=== PATIENT | male | born 1950 | race Caucasian/White ===

== ENCOUNTER 2016-12-17 11:47 | Observation (INO) | payer MEDICARE, OTHER ==
[2016-12-17] VITALS (8 sets, daily range): BP systolic 133–168; BP diastolic 70–95; PULSE 56–68; RESP 16–23; TEMP 97.7–97.8; O2SAT 97–100
[~2016-12-17] VITALS: Ht 180.3 cm; Wt 93.0 kg
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
[2016-12-17] MEDS ORDERED: SODIUM CHLORIDE 0.9% FLUSH 10 ML FLUSH IVF PRN (12:00)
[2016-12-17] MEDS ORDERED: LIDOCAINE HCL 1% 50 ML VIAL INFIL ONE ×2 (12:00→13:15)
[2016-12-17] MEDS ORDERED: TETANUS/DIPHTHERIA TOXOID ADULT 0.5 ML VIAL IM ONE (12:00)
[2016-12-17] MEDS ORDERED: LIDOCAINE HCL 1% PF 30 ML VIAL ONE ×2 (12:45→13:25)
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
[2016-12-17 12:59] LABS: APTT (PATIENT) 24.3 SEC (24.3-30.1)
[2016-12-17 13:02] LABS: BASOPHIL # 0.1 TH/MM3 (0-0.2); BASOPHIL % 0.7 % (0.0-2.0); EOSINOPHIL # 0.2 TH/MM3 (0-0.4); HEMATOCRIT 44.4 % (39.0-51.0); HEMO FLAGS DIFF FINAL; LYMPH % 19.6 % (9.0-44.0); LYMPHOCYTE # 1.7 TH/MM3 (1.0-4.8); MEAN CELL VOLUME 83.5 FL (80.0-100.0); MEAN CORPUSCULAR HEMOGLOBIN 28.2 PG (27.0-34.0); MEAN CORPUSCULAR HGB CONC 33.7 % (32.0-36.0); NEUT % 68.7 % (16.0-70.0); PLATELET COUNT 198 TH/MM3 (150-450); RED BLOOD COUNT 5.31 MIL/MM3 (4.50-5.90); RED CELL DISTRIBUTION WIDTH 13.2 % (11.6-17.2); WHITE BLOOD COUNT 8.7 TH/MM3 (4.0-11.0)
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
[2016-12-17 13:19] LABS: ALT (GPT) 25 U/L (12-78); ANION GAP 8 MEQ/L (5-15); AST (GOT) 18 U/L (15-37); BICARBONATE 23.2 MEQ/L (21.0-32.0); BLOOD UREA NITROGEN 17 MG/DL (7-18); CHLORIDE 107 MEQ/L (98-107); GLOMERULAR FILTRATION RATE 61 ML/MIN (>89); MAGNESIUM 2.3 MG/DL (1.5-2.5); POTASSIUM 4.8 MEQ/L (3.5-5.1); SODIUM (NA) 138 MEQ/L (136-145)
[2016-12-17 13:23] LABS: ALKALINE PHOSPHATASE 62 U/L (45-117); CREATINE KINASE 121 U/L (39-308); TOTAL BILIRUBIN ADULT 0.7 MG/DL (0.2-1.0)
[2016-12-17 13:35] LABS: CKMB 2.3 NG/ML (0.5-3.6)
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
[2016-12-17] MEDS ORDERED: SODIUM CHLORIDE 0.9% FLUSH 10 ML FLUSH IV FLUSH PRN (16:15)
[2016-12-17] MEDS ORDERED: BISACODYL 10 MG SUPP RECTAL PRN (16:15)
[2016-12-17] MEDS ORDERED: ACETAMINOPHEN 325 MG TAB PO PRN ×2 (16:15)
[2016-12-17] MEDS ORDERED: ACETAMINOPHEN/HYDROcodone 325 MG/5 MG TAB PO PRN (16:15)
[2016-12-17] MEDS ORDERED: MAGNESIUM HYDROXIDE SUSP 30 ML CUP PO PRN (16:15)
[2016-12-17] MEDS ORDERED: ONDANSETRON HCL 4 MG/2 ML VIAL IVP PRN (16:15)
[2016-12-17] MEDS ORDERED: SENNOSIDES 8.6 MG TAB PO PRN (16:15)
[2016-12-17] MEDS ORDERED: LACTULOSE SYRUP 20 GM/30 ML CUP PO PRN (16:15)
[2016-12-17] MEDS ORDERED: ACETAMINOPHEN/HYDROcodone 325 MG/7.5 MG TAB PO PRN (16:15)
[2016-12-17] MEDS ORDERED: NALOXONE HCL 0.4 MG/ML AMP IV PRN (16:15)
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
[2016-12-17] MEDS: DOCUSATE SODIUM 50 MG/SENNA 8.6 MG TAB PO SCH (21:00)
[2016-12-17] MEDS: MUPIROCIN 2% CREAM 15 GM TOPICAL SCH (21:00)
[2016-12-17] MEDS: SODIUM CHLORIDE 0.9% FLUSH 10 ML FLUSH IV FLUSH SCH (21:00)
[2016-12-18 00:29] VITALS: BP 126/75; PULSE 60; RESP 18; TEMP 98.4; O2SAT 98
[2016-12-18 00:47] VITALS: PULSE 57
[2016-12-18 03:34] VITALS: BP 126/85; PULSE 61; RESP 18; TEMP 97.9; O2SAT 97
[2016-12-18 03:39] LABS: BLOOD, URINE NEG (NEG); COMMENT (UR) CULT NOT INDICATED; CULTURE IF INDICATED CULT NOT INDICATED; GLUCOSE,URINE NEG (NEG); KETONE, URINE NEG (NEG); MUCUS URINE FEW /lpf (OCC); NITRITE,URINE NEG (NEG); PH, URINE 5.5 (5.0-8.5); SQUAMOUS EPITHELIAL CELL URINE <1 /hpf (0-5); URINE COLOR YELLOW (YELLW/STRAW)
[2016-12-18 04:43] VITALS: PULSE 61
[2016-12-18 07:00] VITALS: BP 132/79; PULSE 64; TEMP 98.1; O2SAT 96
[2016-12-18] MEDS: SODIUM CHLORIDE 0.9% FLUSH 10 ML FLUSH IV FLUSH SCH (08:42)
[2016-12-18] MEDS: DOCUSATE SODIUM 50 MG/SENNA 8.6 MG TAB PO SCH (08:42)
[2016-12-18] MEDS: MUPIROCIN 2% CREAM 15 GM TOPICAL SCH (08:42)
[2016-12-18] MEDS ORDERED: ALBUAER3 INH (09:00)
[2016-12-18] MEDS ORDERED: MUPI2%T TOPICAL (09:00)
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
--- NOTE | 2016-12-18 16:08 | EKG ---
Date Performed: 12/17/2016 Time Performed: 12:00:28 PTAGE: 66 years EKG: Sinus rhythm NORMAL ECG INTERPRETATION BASED ON A DEFAULT AGE OF 41 YEARS NO PREVIOUS TRACING DOCTOR: Norris Gonzalez Interpretating Date/Time 12/18/2016 16:07:13
== END 2016-12-18 10:58 | disposition home or self-care (01) ==
LOC: NEPC 11:47 → NEDA 16:03 → NEPHCDU 19:03
PROVIDERS: ADMIT Hospitalist; ATTEND Hospitalist
PROC: 0HQ1XZZ Repair Face Skin, External Approach (ICD-10-PCS; principal; 2016-12-17)
DX: S06.9X9A Unspecified intracranial injury with loss of consciousness of unspecified duration, initial encounter (principal); S01.81XA Laceration without foreign body of other part of head, initial encounter; S50.811A Abrasion of right forearm, initial encounter; S80.212A Abrasion, left knee, initial encounter; M25.562 Pain in left knee; R06.2 Wheezing; V29.88XA Motorcycle rider (driver) (passenger) injured in other specified transport accidents, initial encounter
CPT/HCPCS: 12013; 70450; 71010; 72125; 73564; 80053; 81001; 82550; 82552; 83735; 84484; 85025; 85610; 85730; 90471; 90714; 93005; 97161; 99285; G0378; G8987; G8988